=== PATIENT | male | born 1955 | race Caucasian/White ===

== ENCOUNTER → 2017-07-27 | Outpatient (CLI) | payer OTHER ==
[~2017-07-27] MED LIST: ACYC-113 PO; ASPI-515 PO; DIVA250T4 PO; DIVA500T2 PO; FLEC150T PO; LATA2.5D3 EACHEYE; LORA-445 PO; OMEG1CAP23 PO; REGADENOSON 0.4 MG/5 ML SYRINGE ONE
== END | disposition home or self-care (01) ==
LOC: CFH 12:17
PROVIDERS: ATTEND Nurse Practitioner Family
DX: I48.0 Paroxysmal atrial fibrillation (principal)
CPT/HCPCS: 78452; 93017; A9502; J2785

== ENCOUNTER → 2019-07-31 | Outpatient (CLI) | payer OTHER | END | disposition home or self-care (01) | LOC: CFH 09:15 | PROVIDERS: ATTEND Registered Nurse | DX: R07.89 Other chest pain (principal); I48.91 Unspecified atrial fibrillation | CPT/HCPCS: 78452; 93017; A9502; J2785 ==

== ENCOUNTER 2020-11-26 10:17 | Emergency (ER) | payer OTHER ==
[~2020-11-26] VITALS: Ht 193 cm; Wt 107.1 kg
[~2020-11-26 10:17] MED LIST changes: -ASPI-515 PO; +ASPI-963 PO; -LATA2.5D3 EACHEYE; +LATA2.5D4 EACHEYE; -REGADENOSON 0.4 MG/5 ML SYRINGE ONE
[2020-11-26] MEDS ORDERED: DILTIAZEM 5 MG/ML, 5ML IVPush ONE (11:00)
[2020-11-26] MEDS ORDERED: SODIUM CHLORIDE FLUSH 10ML SYR IVF ONE (11:00)
[2020-11-26] MEDS ORDERED: DILTIAZEM 5 MG/ML, 5ML ONE (11:09)
--- NOTE | 2020-11-26 11:17 | NUR ---
PT C/O JITTERY CHEST FEELING X 3 DAYS. PT DENIES SOB, N/V, CHEST PAIN/JITTERY FEELING AT THIS TIME. PT STATES THIS IS THE SAME FEELINGS HE FELT 10 YEARS AGO WHEN HE HAD ABOUT OF AFIB. PT STATES HE FEELS ANXIOUS.
[2020-11-26 11:45] LABS: BASOPHILS % (AUTO) 0 % (0-1); EOSINOPHILS % (AUTO) 1 % (1-7); LYMPHOCYTES % (AUTO) 19 % (22-44); MEAN CORPUSCULAR HEMOGLOBIN 29.2 pg (27.5-34.5); MEAN CORPUSCULAR HGB CONC 34.3 g/dL (33.2-36.2); MEAN PLATELET VOLUME 7.5 fL (7.4-10.4); MONOCYTES % (AUTO) 9 % (2-9); NEUTROPHILS % (AUTO) 70 % (42-75); PLATELET COUNT 378 x10^3/uL (130-400); RED BLOOD COUNT 5.88 x10^6/uL (4.38-5.82); RED CELL DISTRIBUTION WIDTH 14.4 % (9.4-14.8)
[2020-11-26 11:50] LABS: ALBUMIN 3.9 g/dL (3.4-5.0); ANION GAP 4 mmol/L (5-15); CALCIUM 8.9 mg/dL (8.5-10.1); CHLORIDE 107 mmol/L (98-107)
[2020-11-26 11:53] LABS: TROPONIN I 0.027 ng/mL (0.000-0.045)
[2020-11-26] MEDS ORDERED: SODIUM CHLORIDE 0.9% 1,000ML IVBOLUS ONE (12:00)
[2020-11-26 12:14] LABS: MD SCAN
[2020-11-26] MEDS ORDERED: FENTANYL PF 100 MCG/2ML ONE (12:20)
[2020-11-26] MEDS ORDERED: ETOMIDATE 20 MG/10 ML ONE (12:20)
[2020-11-26] MEDS ORDERED: APIXABAN 5 MG TABLET ONE (13:22)
[2020-11-26 13:26] VITALS: BP 153/98
[2020-11-26] MEDS ORDERED: APIXABAN 5 MG TABLET PO ONE (13:30)
--- NOTE | 2020-11-26 13:42 | NUR ---
BREAK RN: Caregiver given discharge instructions and they have confirmed that they understand the instructions. Patient ambulatory with steady gait.
== END 2020-11-26 13:45 | disposition home or self-care (01) ==
LOC: ED 11:02
DX: I48.92 Unspecified atrial flutter (principal); I49.3 Ventricular premature depolarization; R00.2 Palpitations; I10 Essential (primary) hypertension; F41.9 Anxiety disorder, unspecified
CPT/HCPCS: 36415; 80048; 82040; 84484; 85025; 92960; 93005; 96360; 99285; J7030

== ENCOUNTER 2020-11-29 15:11 | Emergency (ER) | payer OTHER ==
[~2020-11-29] VITALS: Ht 193 cm; Wt 105.2 kg
[~2020-11-29 15:11] MED LIST changes: -ACYC-113 PO; +ACYC200C13 PO
--- NOTE | 2020-11-29 15:51 | NUR ---
PT STATES HX OF AFIB. STATES RECENTLY SEEN HERE FOR AFIB, PT STATES HAD CARDIOVERSION 11/26. PT STATE STARTING LAST NIGHT, HE FELT "FUNNY" AND A LITTLE "OUT OF IT." PT STATES WANTS TO BE CHECKED BY ERP. PT PLACED ON MONITORS, VSS. PT CURRENTLY IN NSR. WILL FOLLOW ORDERS.
[2020-11-29 16:13] LABS: BASOPHILS % (AUTO) 1 % (0-1); EOSINOPHILS % (AUTO) 1 % (1-7); LYMPHOCYTES % (AUTO) 16 % (22-44); MEAN CORPUSCULAR HEMOGLOBIN 28.6 pg (27.5-34.5); MEAN CORPUSCULAR HGB CONC 33.7 g/dL (33.2-36.2); MEAN PLATELET VOLUME 7.1 fL (7.4-10.4); MONOCYTES % (AUTO) 9 % (2-9); NEUTROPHILS % (AUTO) 74 % (42-75); PLATELET COUNT 411 x10^3/uL (130-400); RED BLOOD COUNT 5.79 x10^6/uL (4.38-5.82); RED CELL DISTRIBUTION WIDTH 14.5 % (9.4-14.8)
[2020-11-29 16:21] LABS: ALANINE AMINOTRANSFERASE 29 U/L (12-78); ANION GAP 7 mmol/L (5-15); CHLORIDE 107 mmol/L (98-107); CREATININE 0.95 mg/dL (0.7-1.3)
[2020-11-29 16:25] LABS: ALKALINE PHOSPHATASE 81 U/L (45-117); BILIRUBIN,TOTAL 0.5 mg/dL (0.2-1.0); TOTAL PROTEIN 7.5 g/dL (6.4-8.2); TROPONIN I < 0.015 ng/mL (0.000-0.045)
[2020-11-29] MEDS ORDERED: LORazepam 1MG TABLET ONE (16:29)
[2020-11-29] MEDS ORDERED: LORazepam 1MG TABLET PO ONE (16:30)
--- NOTE | 2020-11-29 16:44 | NUR ---
PT MEDICATED WITH [facility] PER ORDERS. PT REMAINS ON MONITORS, WILL REASSESS VITALS. PT CONTINUES TO DENY CP. CONT TO MONITOR.
--- NOTE | 2020-11-29 17:13 | NUR ---
PT RESTING IN BED, NO DISTRESS. PT REMAINS ON MONITORS, VDD. CONT TO MONITOR.
--- NOTE | 2020-11-29 17:15 | NUR ---
RECEIVED REPORT FROM TEJAS VILLA. ASSUMING CARE AT THIS TIME. PT RESTING COMFORTABLY ON GURNEY. GATO.
--- NOTE | 2020-11-29 17:15 | NUR ---
REPORT TO LAUREN VILLA.
--- NOTE | 2020-11-29 17:17 | NUR ---
ALL RESULTS ARE BACK AT THIS TIME. CHART UP FOR RECHECK
[2020-11-29 18:01] VITALS: BP 159/96
--- NOTE | 2020-11-29 18:01 | NUR ---
TASK RN: PT STATES HE IS FEELING BETTER AND HAS AN APPOINTMENT WITH [employer]. PT AMBULATED TO DISCHARGE WINDOW STEADY GAIT.
== END 2020-11-29 18:04 | disposition home or self-care (01) ==
LOC: ED 17:55
DX: R00.2 Palpitations (principal); R42 Dizziness and giddiness; I10 Essential (primary) hypertension; I48.91 Unspecified atrial fibrillation; I48.92 Unspecified atrial flutter
CPT/HCPCS: 36415; 71045; 80053; 84484; 85025; 93005; 99285

== ENCOUNTER → 2020-12-21 | Outpatient (CLI) | payer OTHER ==
[~2020-12-21] MED LIST changes: +APIX5TAB PO; +FLEC50TA25 PO; +TADA20TA PO
== END | disposition home or self-care (01) ==
LOC: STAR 15:51
PROVIDERS: ATTEND Internal Medicine Cardiovascular Disease
DX: Z20.822 Contact with and (suspected) exposure to COVID-19 (principal)
CPT/HCPCS: U0003

== ENCOUNTER 2020-12-24 06:19 | Observation (INO) | payer OTHER ==
[~2020-12-24] VITALS: Ht 193 cm; Wt 107.5 kg
[~2020-12-24 06:19] MED LIST changes: -APIX5TAB PO; -FLEC50TA25 PO; -TADA20TA PO
[2020-12-24] MEDS ORDERED: SODIUM CHLORIDE 0.9% 1,000 ML IV SCH (07:30)
[2020-12-24] MEDS ORDERED: SODIUM CHLORIDE 0.9% 1,000 ML IV ONE (07:30)
[2020-12-24] MEDS ORDERED: FLEC50TA25 PO (07:42)
[2020-12-24] MEDS ORDERED: TADA20TA PO (07:42)
[2020-12-24] MEDS ORDERED: APIX5TAB PO (07:42)
[2020-12-24 07:45] LABS: BASOPHILS % (AUTO) 0 % (0-1); EOSINOPHILS % (AUTO) 1 % (1-7); LYMPHOCYTES % (AUTO) 19 % (22-44); MEAN CORPUSCULAR HGB CONC 33.9 g/dL (33.2-36.2); MEAN PLATELET VOLUME 7.5 fL (7.4-10.4); MONOCYTES % (AUTO) 11 % (2-9); NEUTROPHILS % (AUTO) 69 % (42-75); PLATELET COUNT 336 x10^3/uL (130-400); RED CELL DISTRIBUTION WIDTH 14.7 % (9.4-14.8)
[2020-12-24 07:48] LABS: MD NO
[2020-12-24 07:50] VITALS: BP 146/97
[2020-12-24 07:59] LABS: ALANINE AMINOTRANSFERASE 35 U/L (12-78); ALBUMIN 3.7 g/dL (3.4-5.0); ANION GAP 6 mmol/L (5-15); CALCIUM 8.8 mg/dL (8.5-10.1); CHLORIDE 111 mmol/L (98-107); CHOLESTEROL, TOTAL 135 mg/dL (140-239); PROTHROMBIN TIME 10.7 Seconds (9.6-11.5); TRIGLYCERIDES 70 mg/dL (50-200); VLDL CHOLESTEROL 14 mg/dL (0-25)
[2020-12-24 08:09] LABS: ALKALINE PHOSPHATASE 67 U/L (45-117); BILIRUBIN,TOTAL 0.5 mg/dL (0.2-1.0); HDL CHOL % 49 % (26-37); HDL CHOLESTEROL (DIRECT) 66 mg/dL (40-60); LDL CHOLESTEROL,CALCULATED 55 mg/dL (54-169); LDL/HDL RATIO 0.8 (0.5-3.0); TOTAL PROTEIN 6.8 g/dL (6.4-8.2)
[2020-12-24] MEDS ORDERED: FENTANYL PF 250 MCG/5ML ONE (08:15)
[2020-12-24] MEDS ORDERED: MIDAZOLAM 1 MG/ML, 2ML ONE (08:15)
[2020-12-24] MEDS ORDERED: PROPOFOL 10 MG/ML, 20ML ONE (09:50)
[2020-12-24] MEDS ORDERED: SUCCINYLCHOLINE 20 MG/ML, 10ML ONE (09:50)
[2020-12-24] MEDS ORDERED: ROCURONIUM 10MG/ML,5ML ONE (09:50)
[2020-12-24] MEDS ORDERED: HEPARIN 1,000 UNITS/ML, 10ML ONE ×3 (09:50)
[2020-12-24] MEDS ORDERED: DEXAMETHASONE 4 MG/ML, 1ML ONE (09:51)
[2020-12-24] MEDS ORDERED: ONDANSETRON 2MG/ML, 2ML ONE (09:51)
[2020-12-24] MEDS: APIXABAN 5 MG TABLET PO SCH ×2 (11:30→20:49)
[2020-12-24] MEDS ORDERED: APIXABAN 5 MG TABLET PO SCH (11:30)
[2020-12-24] MEDS ORDERED: ZOLPIDEM 5MG TABLET PO PRN (11:30)
[2020-12-24] MEDS ORDERED: ACETAMINOPHEN 325 MG TABLET PO PRN ×2 (11:30→12:00)
[2020-12-24] MEDS ORDERED: FENTANYL PF 100 MCG/2ML ONE (11:58)
[2020-12-24] MEDS ORDERED: OXYcodone 5 MG/5 ML ORAL.SOL UDC ONE (11:58)
[2020-12-24] MEDS ORDERED: EPHEDRINE 50 MG/ML, 1ML IVPush PRN (12:00)
[2020-12-24] MEDS ORDERED: ONDANSETRON 2MG/ML, 2ML IVPush PRN (12:00)
[2020-12-24] MEDS ORDERED: MEPERIDINE/PF 25MG/0.5ML IVPush PRN (12:00)
[2020-12-24] MEDS ORDERED: LABETALOL 5MG/ML, 20ML IV PRN (12:00)
[2020-12-24] MEDS ORDERED: PROMETHAZINE 25 MG/ML, 1ML IVPush PRN (12:00)
[2020-12-24] MEDS ORDERED: EPHEDRINE 50 MG/ML, 1ML IM PRN (12:00)
[2020-12-24] MEDS ORDERED: DIAZEPAM 5 MG/ML, 2ML IVPush PRN (12:00)
[2020-12-24] MEDS ORDERED: OXYcodone 5 MG/5 ML ORAL.SOL UDC PO PRN (12:00)
[2020-12-24] MEDS ORDERED: morphine SULFATE 10 MG/ML, 1ML IVPush PRN (12:00)
[2020-12-24] MEDS: FENTANYL PF 100 MCG/2ML IV PRN ×2 (12:01→12:07)
[2020-12-24] MEDS ORDERED: APIXABAN 5 MG TABLET ONE (12:03)
[2020-12-24 14:50] VITALS: BP 131/83
[2020-12-24] MEDS: LORazepam 0.5MG TABLET PO SCH ×2 (16:35→20:48)
[2020-12-24] MEDS: FLECAINIDE 100MG TABLET PO SCH (20:48)
[2020-12-24] MEDS: COLCHICINE 0.6 MG CAPSULE PO SCH (20:49)
[2020-12-24] MEDS ORDERED: LATANOPROST OPHTH 0.005%, 2.5ML EACHEYE SCH (21:00)
[2020-12-24 21:03] VITALS: BP 155/95
[2020-12-25 00:22] VITALS: BP 132/83
[2020-12-25 07:20] VITALS: BP 136/85
[2020-12-25] MEDS ORDERED: OMEGA-3/FISH OIL CAPSULE PO SCH (09:00)
[2020-12-25] MEDS ORDERED: ACYCLOVIR 200 MG CAPSULE PO SCH (09:00)
[2020-12-25] MEDS: LORazepam 0.5MG TABLET PO SCH (09:35)
[2020-12-25] MEDS: FLECAINIDE 100MG TABLET PO SCH (09:35)
[2020-12-25] MEDS: APIXABAN 5 MG TABLET PO SCH (09:36)
[2020-12-25] MEDS: COLCHICINE 0.6 MG CAPSULE PO SCH (09:36)
[2020-12-25] MEDS ORDERED: COLC0.6C3 PO (10:00)
[2020-12-25] MEDS ORDERED: APIX5TAB PO (10:00)
== END 2020-12-25 13:45 | disposition home or self-care (01) ==
LOC: CACL 06:19 → ORIP 11:17 → 5SO 12:44 → DCLOUNGE 12-25 13:36
PROVIDERS: ADMIT Internal Medicine Cardiovascular Disease; ATTEND Internal Medicine Cardiovascular Disease
DX: I48.91 Unspecified atrial fibrillation (principal); I48.92 Unspecified atrial flutter; I10 Essential (primary) hypertension; I65.29 Occlusion and stenosis of unspecified carotid artery; Z79.899 Other long term (current) drug therapy
CPT/HCPCS: 36415; 71046; 80053; 80061; 84443; 85025; 85610; 85730; 93306; 93312; 93321; 93325; 93613; 93655; 93656; 93657; C1730; C1732; C1766; C1893; C1894; G0378; J0330; J1100; J1644; J2250; J2405; J2704; J3010